=== PATIENT | male | born 1960 | race African-American/Black ===

== ENCOUNTER 2018-08-10 09:31 | Observation (INO) ==
[2018-08-10 10:18] LABS: UR AMPHETAMINES QUAL NONE DETECTED (NONE DETECT); UR BARBITUATES QUAL NONE DETECTED (NONE DETECT); UR BENZODIAZEPIN QUAL NONE DETECTED (NONE DETECT); UR CANNABINOIDS QUAL PRESUMPTIVE POSITIVE (NONE DETECT); UR COCAINE QUAL NONE DETECTED (NONE DETECT); UR METHADONE QUAL NONE DETECTED (NONE DETECT); UR METHAMPHETAMINE QUAL NONE DETECTED (NONE DETECT); UR OPIATES QUAL NONE DETECTED (NONE DETECT); UR OXYCODONE QUAL NONE DETECTED (NONE DETECT); UR PCP QUAL NONE DETECTED (NONE DETECT); UR PROPOXYPHENE QUAL NONE DETECTED (NONE DETECT); UR TCA QUAL NONE DETECTED (NONE DETECT)
[2018-08-10 10:49] LABS: BASO# 0.01 X1000 (0.0-0.2); BASO% 0.1 % (0.0-0.8); EOS# 0.01 X1000 (0.0-0.7); EOS% 0.1 % (0.0-10.0); HEMATOCRIT 38.4 % (42.0-52.0); HEMOGLOBIN 12.6 g/dL (14.0-18.0); IMM GRAN# 0.01 X1000 (0.0-0.04); IMM GRAN% 0.1 % (0.0-0.5); LYMPH# 1.28 X1000 (1.2-3.4); LYMPH% 17.1 % (20.5-51.1); MCH 29.8 PG (27-31); MCHC 32.8 g/dL (33-37); MCV 90.8 FL (81-99); MONO# 0.29 X1000 (0.11-0.59); MONO% 3.9 % (1.7-9.3); MPV 9.6 FL (7.4-10.4); NEUT# 5.88 X1000 (1.4-6.5); NEUT% 78.7 % (42.2-75.2); PLT 211 X1000 (130-400); RBC 4.23 XMIL (4.7-6.1); RDW 15.1 % (11.5-14.5); WBC 7.48 X1000 (4.8-10.8)
[2018-08-10 11:03] LABS: INR 1.02; PROTIME 13.9 Seconds (11.0-16.0)
[2018-08-10 11:04] LABS: AGAP 15; ALBUMIN 4.2 g/dL (3.5-5.0); ALKALINE PHOSPHATASE 94 U/L (32-122); BUN 13 mg/dL (8-22); CALCIUM 9.2 mg/dL (8.8-10.2); CHLORIDE 107 mmol/L (98-107); COSMO 283; CREATININE 1.2 mg/dL (0.7-1.2); ESTIMATED GFR > 60; GLUCOSE 170 mg/dL (70-104); GOT 19 U/L (10-34); GPT 11 U/L (10-44); POTASSIUM 4.5 mmol/L (3.5-5.1); PTT 25.2 Seconds (22.3-41.8); SODIUM 140 mmol/L (136-145); TCO2 18 mmol/L (25-35); TOTAL PROTEIN 7.5 g/dL (6.3-8.3)
[2018-08-10 11:08] LABS: CK PROFILE 388 U/L (24-204)
[2018-08-10 11:22] LABS: CK INDEX 0.7 (0.0-2.5); CK-MB 2.76 ng/mL (0.0-5.0)
[2018-08-10 11:23] LABS: BE -2.9 mmoll (-3.0-3.0); BLOOD TYPE ARTERIAL; HCO3-(ACT) 22.4 mmoll (20.0-26.0); METHB 1.3 % (0.0-1.5); PCO2(98.6) 33 mmHg (35-45); PO2(98.6) 60 mmHg (60-100); SAMPLE BLOOD; SAO2 93.6 % (95.0-100.0); THB 13.7 g/dL (11.5-17.4); pH(98.6) 7.41 (7.35-7.45)
[2018-08-10 11:30] LABS: ALLEN TEST YES; MODALITY ROOM AIR
[2018-08-10] MEDS ORDERED: ZOFRAN IV ONE (11:34)
[2018-08-10 11:36] LABS: O2HB 88.5 % (95.0-99.0)
[2018-08-10] MEDS ORDERED: NS 1,000 ML IV ONE ×3 (11:58→17:29)
--- NOTE | 2018-08-10 12:41 | Diag Imaging Result Doc PS360 ---
EXAM: CT HEAD/C-SPINE W/O CONTRAST INDICATION: seizure fall TECHNIQUE: This exam was performed using automated exposure control, adjustment of mA or kV according to patient size, and/or use of iterative reconstruction technique. COMPARISON: CT head dated 04/06/2018 FINDINGS: Head: There is no definite acute infarct given the limited sensitivity of CT versus MRI. There is no discrete intracranial mass, mass effect, or intracranial hemorrhage. There is essentially stable paranasal sinus mucosal disease. The calvaria is intact. C-spine: There is multilevel degenerative disc disease with multilevel endplate marginal osteophytes. This causing at least mild central canal and neuroforaminal narrowing at several levels. Otherwise, there is no discrete fracture, subluxation, or intrinsic osseous lesion. There are emphysematous changes at the lung apices. Surrounding soft tissues are essentially unremarkable, otherwise. IMPRESSION: 1.No evidence of acute intracranial pathology. 2.Multilevel degenerative changes but no evidence of fracture or other definite acute C-spine injury. Electronically signed by Geovanny Barnes 08/10/2018 12:39 PM
[2018-08-10] MEDS ORDERED: NS 1,000 ML ONE ×2 (13:16→17:18)
--- NOTE | 2018-08-10 14:20 | Diag Imaging Result Doc PS360 ---
EXAM: CHEST-PORTABLE INDICATION: syncope TECHNIQUE: One view COMPARISON: 07/04/2018 FINDINGS: There is minimal subsegmental atelectasis and/or scarring at the lung bases. The lungs are grossly clear, otherwise. There is no discrete pleural fluid collection or pneumothorax. The cardiomediastinal silhouette and central vasculature are grossly unremarkable. IMPRESSION: Minimal bibasilar subsegmental atelectasis versus scarring. No definite acute pathology, otherwise. Electronically signed by Geovanny Barnes 08/10/2018 2:18 PM
[2018-08-10] MEDS ORDERED: CATAPRES PO ONE (14:57)
--- NOTE | 2018-08-10 16:29 | PROVIDER DOCUMENTATION ---
This chart was entered by Ellie Ewing Scribe, acting as scribe for Arya Hamm MD. HPI-General Adult - General Chief Complaint: Altered Mental Status Stated Complaint: Unresponsive Time Seen by Provider: 08/10/18 09:54 Source: patient, family, EMS Allergies/Adverse Reactions: Patient Allergies Allergy/AdvReac Type Severity Reaction Status Date / Time morphine Allergy HIVES Verified 07/04/18 18:49 Penicillins Allergy HIVES Verified 07/04/18 18:49 Home Medications: Home Medication List Medication Instructions Recorded Confirmed Last Taken Type Losartan Potassium [Cozaar] 100 mg PO DAILY 05/30/17 07/04/18 07/04/18 History Metformin [Glucophage] 500 mg PO BID CC 02/07/18 07/04/18 07/04/18 History Venlafaxine HCl 2 tab PO DAILY 06/15/18 07/04/18 07/04/18 History Aspirin [Aspir-Low] 81 mg PO DAILY 07/04/18 07/04/18 07/04/18 History Tiotropium [place] Inhaler 1 puff INH RTDAILY 07/04/18 07/04/18 Unknown History [Spiriva] - History of Present Illness -Gen Adult Nature of Presenting Problems: 58 y/o male presents to ED after daughter found him unresponsive in bed just prior to arrival. Pt reports he has been falling out of bed over the past 3 days , but states he does not remember how he got there and his daughter has to tell him about it. Pt states he has hx seizures. Pt reports he has neck and back pain due to his falls. Daughter of pt states she found him in the floor again at 0330, but he refused to come to ED. Daughter reports she checked on him again before she called EMS and he was unresponsive and incontinent of urine/ stool. EMS states he was foaming at the mouth, had deep snoring respirations, and pinpoint pupils upon their arrival. EMS reports he awoke when they moved him , but was altered. Daughter states he smokes marijuana, but is not using any other substances. Pt is alert and oriented. Location of Pain/Injury: reports: neck, back Pain Radiation: reports: no radiation Quality of Pain: reports: aching Severity: reports: mild Onset/Duration: reports: just prior to arrival, 4-6 hours ago, 3 days ago, this morning Timing: reports: still present Context/Activities at Onset: reports: none Modifying Factors: improves with: nothing Associated Symptoms: reports: back/neck pain, other (unresponsive prior to arrival; falling out of bed; incontinent of stool/urine) Similar Symptoms Previously?: No Recently seen or treated by another doctor?: No Review of Systems - Adult - REVIEW OF SYSTEMS - ADULT Constitutional: reports: other (unresponsive prior to arrival). denies: chills , fever Eyes: reports: no symptoms reported Ears, Nose, Mouth & Throat: reports: no symptoms reported Cardiovascular: denies: chest pain, palpitations Respiratory: denies: cough, shortness of breath Gastrointestinal: denies: abdominal pain, diarrhea, nausea, vomiting Genitourinary: reports: incontinence (stool/urine). denies: discharge Musculoskeletal: reports: back pain, neck pain. denies: joint pain Integumentary: reports: no symptoms reported Neurological: reports: other (falling). denies: dizziness/vertigo, seizure Psychiatric: reports: no symptoms reported Endocrine: reports: no symptoms reported Hematologic/Lymphatic: reports: no symptoms reported Allergic/Immunologic: reports: no symptoms reported All Other Systems: Reviewed and Negative Past History - Adult - PAST MEDICAL HISTORY-ADULT Review of Records: reports: Old Records Reviewed, Nursing Assessment Review, Medications Reviewed Major Childhood Illnesses: reports: denies history Cardiovascular: reports: HTN, hyperlipidemia Respiratory: reports: asthma, COPD Gastrointestinal: reports: denies history, pancreatitis Obstetrical/Gynecological: reports: denies history Genitourinary: reports: denies history Musculoskeletal: reports: denies history Neurological: reports: Seizures/Epilepsy Psychiatric: reports: depression, ptsd Endocrine/Immune: reports: Diabetes Other Conditions: reports: denies history - PRIOR SURGERIES/PROCEDURES Surgical/Procedure History: reports: reviewed, not pertinent, other (left testicle removal) - IMMUNIZATION STATUS Childhood Immunizations: See Nurse Assessment Flu Vaccine: See Nurse Assessment - FAMILY HISTORY Family History: reviewed, not pertinent, CAD over 55 yo - SOCIAL HISTORY Smoking: greater than 1 pack/day Provider spent 3-5 mins advising pt. on dangers of tobacco.: Discussed manners to quit use, and f/u contacts for add'l counseling. Substance Use: marijuana Alcohol Use Frequency: never Living Situation: family Physical Exam-General - PHYSICAL EXAM-ADULT Initial Vital Signs Reviewed: Yes - CONSTITUTIONAL General Appearance: appears well, alert, no apparent distress, other (active vomiting) - EYES Eyes: pink conjunctivae, other (pinpoint pupils) - HEAD, EARS, NOSE, MOUTH & THROAT HENMT: normocephalic/atraumatic, moist mucous membranes, normal ENT inspection - NECK Neck: non-tender, full range of motion - RESPIRATORY Respiratory: chest non-tender, lungs clear, normal breath sounds - CARDIOVASCULAR Cardiovascular: normal peripheral pulses, regular rate, rhythm - GASTROINTESTINAL (ABDOMEN) Abdominal Exam: normal bowel sounds, non tender, soft - MUSCULOSKELETAL Back Exam: normal inspection, no CVA tenderness Extremity: normal range of motion, non-tender, normal gait - SKIN Integumentary: normal color, warm/dry, diaphoresis - NEUROLOGIC Neurologic: grossly normal - PSYCHIATRIC Psych/Mental Status: normal mood/affect, normal thought content, normal thought process Progress - PLAN OF CARE/RESULTS Progress/Plan/Lab Results: Vital Signs - 8 hr 08/10/18 09:38 Temperature 98.1 F Pulse Rate 90 Respiratory Rate 20 Blood Pressure 178/84 O2 Sat by Pulse Oximetry 91 L Orders Category Date Time Status Cardiac Monitoring DIRECTED Care 08/10/18 09:46 Active Finger Stick Blood Sugar (ED) DIRECTED Care 08/10/18 09:46 Active Oxygen Therapy- ED Nursing DIRECTED Care 08/10/18 09:46 Active Saline Loc NOW Care 08/10/18 09:46 Active CHEST-PORTABLE [RAD] Stat Exams 08/10/18 09:[address] HEAD W/O CONTRAST [CT] Stat Exams 08/10/18 09:48 Ordered ABG [RESP] Routine Lab 08/10/18 09:46 Ordered CBC WITH ELECTRONIC DIFF [HEME] Stat Lab 08/10/18 09:49 Ordered CK PROFILE [SP CHEM] Stat Lab 08/10/18 09:49 Ordered COMPREHENSIVE METABOLIC PANEL [CHEM] Stat Lab 08/10/18 09:49 Ordered LACTATE, PLASMA [CHEM] Stat Lab 08/10/18 09:49 Ordered PROTIME WITH INR [COAG] Stat Lab 08/10/18 09:49 Ordered PTT [COAG] Stat Lab 08/10/18 09:49 Ordered TROPONIN T Stat Lab 08/10/18 09:49 Ordered Altered Mental Status Stat Oth 08/10/18 09:46 Ordered EKG [EKG] Stat Ther 08/10/18 09:46 Ordered Laboratory Tests 08/10/18 08/10/18 08/10/18 09:50 10:40 10:40 WBC 7.48 RBC 4.23 L Hgb 12.6 L Hct 38.4 L MCV 90.8 MCH 29.8 MCHC 32.8 L RDW Std Deviation 15.1 H Plt Count 211 MPV 9.6 Immature Gran % (Auto) 0.1 Neut % (Auto) 78.7 H Lymph % (Auto) 17.1 L [place] % (Auto) 3.9 Eos % (Auto) 0.1 Baso % (Auto) 0.1 Immature Gran # (Auto) 0.01 Neut # (Auto) 5.88 Lymph # (Auto) 1.28 [place] # (Auto) 0.29 Eos # (Auto) 0.01 Baso # (Auto) 0.01 PT INR PTT (Actin FS) Specimen Type Sample Site pH pCO2 pO2 HCO3 Base Excess Oxyhemoglobin ABG O2 Sat (Calculated) ABG O2 Saturation ABG Carboxyhemoglobin ABG Methemoglobin [place]gard Test A-a O2 Difference Total Hemoglobin Lactate Blood Gas Modality FiO2 % Sodium 140 Potassium 4.5 Chloride 107 Carbon Dioxide 18 L Anion Gap 15 BUN 13 Creatinine 1.2 Estimated GFR/1.73 m2 > 60 BUN/Creatinine Ratio 11 Glucose 170 H Calculated Osmolality 283 Calcium 9.2 Total Bilirubin 0.30 AST 19 ALT 11 Alkaline Phosphatase 94 Creatine Kinase 388 H Creatine Kinase Index 0.7 CK-MB (CK-2) 2.76 Troponin T Total Protein 7.5 Albumin 4.2 Globulin 3.0 Albumin/Globulin Ratio 1.0 Plasma Lactate Urine Opiates Screen NONE DETECTED Ur Oxycodone Screen NONE DETECTED Urine Methadone Screen NONE DETECTED U Propoxyphene Qual NONE DETECTED Ur Barbituates Screen NONE DETECTED Ur Tricyclics Screen NONE DETECTED Ur Phencyclidine Scrn NONE DETECTED Ur Amphetamines Screen NONE DETECTED U Methamphetamines Scrn NONE DETECTED U Benzodiazepines Scrn NONE DETECTED Urine Cocaine Screen NONE DETECTED U Cannabinoids Screen PRESUMPTIVE POSITIVE A 08/10/18 08/10/18 08/10/18 10:40 10:40 10:40 WBC RBC Hgb Hct MCV MCH MCHC RDW Std Deviation Plt Count MPV Immature Gran % (Auto) Neut % (Auto) Lymph % (Auto) [place] % (Auto) Eos % (Auto) Baso % (Auto) Immature Gran # (Auto) Neut # (Auto) Lymph # (Auto) [place] # (Auto) Eos # (Auto) Baso # (Auto) PT 13.9 INR 1.02 PTT (Actin FS) 25.2 Specimen Type Sample Site pH pCO2 pO2 HCO3 Base Excess Oxyhemoglobin ABG O2 Sat (Calculated) ABG O2 Saturation ABG Carboxyhemoglobin ABG Methemoglobin [place] Test A-a O2 Difference Total Hemoglobin Lactate Blood Gas Modality FiO2 % Sodium Potassium Chloride Carbon Dioxide Anion Gap BUN Creatinine Estimated GFR/1.73 m2 BUN/Creatinine Ratio Glucose Calculated Osmolality Calcium Total Bilirubin AST ALT Alkaline Phosphatase Creatine Kinase Creatine Kinase Index CK-MB (CK-2) Troponin T < 0.010 Total Protein Albumin Globulin Albumin/Globulin Ratio Plasma Lactate 3.8 H Urine Opiates Screen Ur Oxycodone Screen Urine Methadone Screen U Propoxyphene Qual Ur Barbituates Screen Ur Tricyclics Screen Ur Phencyclidine Scrn Ur Amphetamines Screen U Methamphetamines Scrn U Benzodiazepines Scrn Urine Cocaine Screen U Cannabinoids Screen 08/10/18 11:00 WBC RBC Hgb Hct MCV MCH MCHC RDW Std Deviation Plt Count MPV Immature Gran % (Auto) Neut % (Auto) Lymph % (Auto) [place] % (Auto) Eos % (Auto) Baso % (Auto) Immature Gran # (Auto) Neut # (Auto) Lymph # (Auto) [place] # (Auto) Eos # (Auto) Baso # (Auto) PT INR PTT (Actin FS) Specimen Type ARTERIAL Sample Site L RADIAL pH 7.41 pCO2 33 L pO2 60 HCO3 22.4 Base Excess -2.9 Oxyhemoglobin 88.5 L* ABG O2 Sat (Calculated) 17.0 ABG O2 Saturation 93.6 L ABG Carboxyhemoglobin 4.00 H ABG Methemoglobin 1.3 [place]gard Test YES A-a O2 Difference 48.0 Total Hemoglobin 13.7 Lactate 1.70 Blood Gas Modality ROOM AIR FiO2 % 21.0 Sodium Potassium Chloride Carbon Dioxide Anion Gap BUN Creatinine Estimated GFR/1.73 m2 BUN/Creatinine Ratio Glucose Calculated Osmolality Calcium Total Bilirubin AST ALT Alkaline Phosphatase Creatine Kinase Creatine Kinase Index CK-MB (CK-2) Troponin T Total Protein Albumin Globulin Albumin/Globulin Ratio Plasma Lactate Urine Opiates Screen Ur Oxycodone Screen Urine Methadone Screen U Propoxyphene Qual Ur Barbituates Screen Ur Tricyclics Screen Ur Phencyclidine Scrn Ur Amphetamines Screen U Methamphetamines Scrn U Benzodiazepines Scrn Urine Cocaine Screen U Cannabinoids Screen Result Diagrams: 08/10/18 10:40 08/10/18 10:40 - EKG 1 Time of EKG reading by physician:: 12:44 EKG Read and Signed by:: Arya Hamm EKG Interpretation (*Must complete 3 of following elements*): Abnormal Rate: 85 Rhythm: NSR w/ sinus arrhythmia [place]: normal QRS: normal IN Interval: normal ST Wave: non-specific ST changes (consider anterolateral ischemia) - XRAY 1 XRAY Study: Chest Impression: Normal (Appears to be normal. -Dr. Hamm), See EMR Report (FINDINGS : There is minimal subsegmental atelectasis and/or scarring at the lung bases. The lungs are grossly clear, otherwise. There is no discrete pleural fluid collection or pneumothorax. The cardiomediastinal silhouette and central vasculature are grossly unremarkable. IMPRESSION: Minimal bibasilar subsegmental atelectasis versus scarring. No definite acute pathology, otherwise. Electronically signed by Geovanny Barnes 08/10/2018 2:18 PM) - CT/MRI 1 CT Study: Cervical Spine, Head Impression: Normal (FINDINGS: Head: There is no definite acute infarct given the limited sensitivity of CT versus MRI. There is no discrete intracranial mass , mass effect, or intracranial hemorrhage. There is essentially stable paranasal sinus mucosal disease. The calvaria is intact. C-spine: There is multilevel degenerative disc disease with multilevel endplate marginal osteophytes. This causing at least mild central canal and neuroforaminal narrowing at several levels. Otherwise, there is no discrete fracture, subluxation, or intrinsic osseous lesion. There are emphysematous changes at the lung apices. Surrounding soft tissues are essentially unremarkable, otherwise. IMPRESSION: 1.No evidence of acute intracranial pathology. 2.Multilevel degenerative changes but no evidence of fracture or other definite acute C-spine injury. Electronically signed by Geovanny Barnes 08/10/2018 12:39 PM) , See EMR Report - CONSULTS/PCP/HOSPITALIST Notification #1 *Consult/PCP/Hospitalist*: Dr. Noel Time Discussed: 15:00 Reason/Comments: HTN Consult Disposition: Admit Departure - Departure Date of Disposition Decision: 08/10/18 Time of Disposition Decision: 15:00 DIAGNOSIS: Tobacco abuse disorder, Drug abuse, Seizure disorder, Noncompliance Hypertension Qualifiers: Hypertension type: unspecified Qualified Code(s): I10 - Essential (primary) hypertension Disposition: ADMITTED INPATIENT 09 Certified Medical Emergency: Emergent Condition: Stable Additional Freetext Instructions: ED Follow Up Instructions: You have been treated by a care provider in the Emergency Department. These instructions are being provided to you so you can have an understanding of how to care for yourself upon discharge. Upon discharge from the Emergency Department, you are responsible for making arrangements for follow-up care by a physician of your choice. Take all prescribed medications as directed. Return to the Emergency Department immediately for any new or worsening symptoms. You may call the Physician Referral phone number at [phone] to obtain a list of Physicians who are taking new patients. Referrals and Follow-Ups: None,PCP [Primary Care Provider] - Discharge Education: Cannabis Use Disorder, Substance Use Disorder, What You Need to Know About Marijuana Use, Hypertension, [id number], Seizure, Adult - Critical Care Note This patient required my direct & personal management of CC.: No Attestation - Physician/ ABBIE Attestation Patient care was provided by Advanced Practice Provider:: No The physician spent face to face time with patient:: Yes Advanced Practice Provider documentation review:: Supervising physician onsite and consulted in the evaluation and care of this patient. The physician did have a face to face encounter with the patient. This chart was documented by the indicated scribe, (Ellie Ewing Scribe) and accurately reflects the services I performed and decisions made by me, Arya Hamm MD, as attested by the provider's signature.
--- NOTE | 2018-08-10 18:34 | EKG Report ---
Test Performed on : 08/10/2018 12:44:23 PM Test Reason : ams/syncope Blood Pressure : / mmHG Vent. Rate : 085 BPM Atrial Rate : 085 BPM P-R Int : 118 ms QRS Dur : 080 ms QT Int : 380 ms P-R-T Axes : 075 004 -59 degrees QTc Int : 452 ms Normal sinus rhythm. with sinus arrhythmia. T wave abnormality, consider anterolateral ischemia Abnormal ECG When compared with ECG of 05-JUL-2018 10:59, Nonspecific T wave abnormality has replaced inverted T waves in Inferior leads Unconfirmed Result
[2018-08-10] MEDS ORDERED: KEPPRA 500 MG in NS 100 ML IV SCH (22:19)
[2018-08-10] MEDS ORDERED: ATIVAN IV PRN (22:19)
[2018-08-10] MEDS ORDERED: APRESOLINE IV PRN (22:19)
[2018-08-10] MEDS: COZAAR PO SCH (22:46)
[2018-08-10] MEDS: NS 1,000 ML IV SCH (22:46)
--- NOTE | 2018-08-11 00:08 | HISTORY AND PHYSICAL ---
ADDENDUM: This patient was seen by me face to face, and I fully agree with the assessment and plan of my nurse practitioner, Iza Ricketts. This is a 58-year-old gentleman who was brought in to the emergency room with some altered mental status, and was positive for THC in his urine. He also has a history of seizure disorder, and has been having some twitching. He has been out of his Keppra, and therefore we are going to restart his Keppra at 500 mg IV q.12 hours. He has used marijuana, and we suspect that it was laced with Spice, which has also happened to several other patients at the emergency room since yesterday. We are going to give him IV fluids and give him medications to control his elevated blood pressure as well. Further recommendations will be given as per hospital course. cc: Reinier Noel MD
[2018-08-11 06:31] LABS: BASO# 0.02 X1000 (0.0-0.2); BASO% 0.2 % (0.0-0.8); EOS# 0.02 X1000 (0.0-0.7); EOS% 0.2 % (0.0-10.0); HEMATOCRIT 33.7 % (42.0-52.0); HEMOGLOBIN 10.8 g/dL (14.0-18.0); IMM GRAN# 0.04 X1000 (0.0-0.04); IMM GRAN% 0.5 % (0.0-0.5); LYMPH# 2.66 X1000 (1.2-3.4); LYMPH% 30.8 % (20.5-51.1); MCV 90.3 FL (81-99); MONO# 0.51 X1000 (0.11-0.59); MONO% 5.9 % (1.7-9.3); MPV 9.7 FL (7.4-10.4); NEUT# 5.38 X1000 (1.4-6.5); NEUT% 62.4 % (42.2-75.2); PLT 202 X1000 (130-400); RBC 3.73 XMIL (4.7-6.1); RDW 15.2 % (11.5-14.5); WBC 8.63 X1000 (4.8-10.8)
[2018-08-11 06:50] LABS: AGAP 13; BUN 11 mg/dL (8-22); CALCIUM 8.5 mg/dL (8.8-10.2); CHLORIDE 107 mmol/L (98-107); CK PROFILE 508 U/L (24-204); COSMO 282; CREATININE 1.2 mg/dL (0.7-1.2); ESTIMATED GFR > 60; GLUCOSE 159 mg/dL (70-104); POTASSIUM 3.3 mmol/L (3.5-5.1); SODIUM 140 mmol/L (136-145); TCO2 20 mmol/L (25-35)
[2018-08-11 07:26] LABS: CK INDEX 0.5 (0.0-2.5); CK-MB 2.57 ng/mL (0.0-5.0)
[2018-08-11] MEDS ORDERED: KEPPRA 500 MG/NS 500 MG/100 ML IVPB IV SCH (10:00)
[2018-08-11] MEDS: COZAAR PO SCH (10:10)
--- NOTE | 2018-08-11 10:21 | HISTORY AND PHYSICAL ---
PRIMARY CARE PHYSICIAN: IRINA Carrillo CHIEF COMPLAINT: Altered mental status. HISTORY OF PRESENTING ILLNESS: This is a 58-year-old -Stateless male who presents to [facility] ER via EMS after the daughter found him responsive in bed, he had been falling out of bed over the past 3 days states he does not remember how he got here and his daughter has to tell him. She states that she found him in the floor at 3:30 this morning and that he had incontinence of urine and stool. He refused to come to the emergency department. She went to check on him again around 9:30 and he was found to be unresponsive again and incontinent of urine and stool. EMS stated that he was foaming at the mouth had deep snoring respirations and pinpoint pupils on their arrival. He woke up when they moved him but was altered. The daughter states that he does smoke marijuana daily but does not use any other substance. At this time he is alert and oriented but lethargic, difficult to obtain a history from him daughter is at bedside. His workup did show O2 saturation on arrival of 91%. Labs were fairly unremarkable. He did have an elevated plasma lactate level 3.8 repeat was at 2.8, his urine drug screen was presumptive positive for cannabis and felt that this was most likely laced with maybe spice unclear but he will be admitted for evaluation and treatment. PAST MEDICAL HISTORY: Of hypertension, PTSD, seizures, COPD and diabetes type 2. PAST SURGICAL HISTORY: None. FAMILY HISTORY: Father with coronary artery disease. SOCIAL HISTORY: He currently lives with his daughter, is a 45 pack per year history of smoking. Denies any alcohol use, uses marijuana daily. ALLERGIES: Morphine and penicillin. HOME MEDICATIONS: A current list will need to be obtained then we will review and restart as appropriate I will place nursing order to update and confirm home medications. LABORATORY DATA: Showed a white blood cell count of 7.48, hemoglobin 12.6, hematocrit 38.4, platelets 211,000, PT/INR 13.9 and 1.02. ABG with a PCO2 33, PO2 60, bicarb 22.4. Carboxyhemoglobin 88.5. Sodium 140, potassium 4.5, chloride 107, CO2 18, BUN 13, creatinine 1.2, glucose 170, creatine kinase of 388, CK-MB of 2.76, troponin less than 0.010, plasma lactate was 3.8 on arrival repeat was down to 2.8. Urine drug screen was positive for cannabinoids. Chest x- ray showed minimal bibasilar subsegmental atelectasis versus scarring but no definite acute pathology otherwise. CT of the head showed no acute intracranial pathology. CT of the cervical spine showed multilevel degenerative changes but no fracture or other definite acute C-spine injury. REVIEW OF SYSTEMS: Unable to obtain from patient. PHYSICAL EXAMINATION: On arrival temperature of 98.1 degrees, pulse 90, respiration 20, blood pressure 178/84 saturating 91 percent on room air . GENERAL: This is a 58-year-old male who is lying in the bed unable to answer questions, daughter is at bedside to answer questions and obtained information from medical record in the ER also. HEENT: Normocephalic, atraumatic. Normal ENT inspection. Oropharynx and nares are clear. Pupils are equal, round, reactive to light and accommodation. Extraocular movements are intact. NECK: Normal inspection, normal range of motion. LUNGS: Clear to auscultation bilaterally with equal lung expansion, chest wall movement. HEART: With regular rate and rhythm. No murmurs, rubs, or gallops. ABDOMEN: Soft, nontender nondistended bowel sounds times four quadrants. MUSCULOSKELETAL: Unable to assess due to altered mental status . NEUROLOGIC: Unable to assess complete neuro exam but appears to be within normal limits at this time . ASSESSMENT: 1. Possible spice overdose unintentional unknown. 2. Seizure. 3. Diabetes type 2. 4. Hypoxia. 5. Marijuana abuse. PLAN: He will be admitted to the medical unit at [facility], we are obtaining a Keppra level, place on telemetry, O2 per protocol, neuro checks q.2 hours. Normal saline at 100 mL an hour. Will place on hydralazine 10 mg IV q.4 hours p.r.n. for a systolic greater than 190, diastolic greater than 100, will have nursing to update and confirm all medication, recheck CBC, BMP in the a.m. and a cardiac profile in the a.m. Further orders after being seen by attending. Dictated by IRINA Mijares for Reinier Noel MD cc: IRINA Carrillo CRNP Adnan A. Seljuki, MD
[2018-08-11] MEDS: NS 1,000 ML IV SCH (10:30)
[2018-08-11 12:36] VITALS: BP 158/74
--- NOTE | 2018-08-11 13:20 | DISCHARGE SUMMARY ---
ADMISSION DATE: 08/10/2018 DISCHARGE DATE: 08/11/2018 DISCHARGE DIAGNOSES: 1. Altered mental status secondary to an unintentional spice overdose. 2. History of seizure disorder that has been stable. 3. History of type 2 diabetes mellitus and hypertension, both of which have remained stable. HOSPITAL COURSE: This is a 58-year-old gentleman who was admitted through the emergency room after he was brought into the hospital with altered mental status. He had admitted that he was using marijuana that was suspected to be laced with spice. He was admitted to the hospital and was given IV fluids. Over the course of the night, the patient's condition improved and he is much better this morning. He is alert and oriented and has completely recovered because of which we are going to discharge him home today. DISCHARGE MEDICATIONS: 1. Keppra 500 mg orally twice daily. 2. Aspirin 81 mg orally once daily. 3. Losartan 100 mg orally once daily. 4. Metformin 500 mg orally twice daily. 5. Spiriva inhaler 1 puff once daily. 6. Venlafaxine 150 mg a day. FOLLOW-UP: He will follow with his PCP in approximately 1 week. CONDITION: Stable. DISPOSITION: Home. cc: Reinier Noel MD
== END 2018-08-11 13:42 | disposition home or self-care (01) ==
LOC: P.EDIPHOLD 09:31 → P.ED 09:31 → P.MEDSURG 20:58
PROVIDERS: ATTEND Internal Medicine
CPT/HCPCS: 70450; 71010; 71045; 72125; 80048; 80053; 80104; 80177; 80299; 80301; 80305; 82491; 82550; 82553; 82805; 82948; 83605; 84484; 85025; 85610; 85730; 93005; 94760; 96361; 96374; 99285; A9270; G0431; G0434; G0477; J1953; J2405; J7030; XXXXX

== ENCOUNTER 2018-11-22 10:26 | Inpatient (IN) ==
[2018-11-21 15:24] LABS: BASO# 0.02 X1000 (0.0-0.2); BASO% 0.3 % (0.0-0.8); EOS# 0.22 X1000 (0.0-0.7); EOS% 3.2 % (0.0-10.0); HEMATOCRIT 40.4 % (42.0-52.0); IMM GRAN# 0.02 X1000 (0.0-0.04); IMM GRAN% 0.3 % (0.0-0.5); LYMPH# 3.29 X1000 (1.2-3.4); LYMPH% 47.5 % (20.5-51.1); MCH 29.9 PG (27-31); MCHC 32.2 g/dL (33-37); MCV 92.9 FL (81-99); MONO# 0.37 X1000 (0.11-0.59); MONO% 5.3 % (1.7-9.3); MPV 10.1 FL (7.4-10.4); NEUT# 3.01 X1000 (1.4-6.5); NEUT% 43.4 % (42.2-75.2); PLT 220 X1000 (130-400); RBC 4.35 XMIL (4.7-6.1); RDW 16.6 % (11.5-14.5); WBC 6.93 X1000 (4.8-10.8)
[2018-11-21 15:53] LABS: AGAP 12; BUN 13 mg/dL (8-22); CALCIUM 9.1 mg/dL (8.8-10.2); CHLORIDE 103 mmol/L (98-107); COSMO 279; CREATININE 1.3 mg/dL (0.7-1.2); ESTIMATED GFR > 60; GLUCOSE 89 mg/dL (70-104); POTASSIUM 4.1 mmol/L (3.5-5.1); SODIUM 140 mmol/L (136-145); TCO2 25 mmol/L (25-35)
[2018-11-22] MEDS ORDERED: VANCOMYCIN 1 GM/NS 1 GM/250 ML IVPB ONE (10:57)
[2018-11-22] MEDS ORDERED: LR 1,000 ML ONE (10:57)
[2018-11-22] MEDS ORDERED: SENSORCAINE-MPF 0.5%/EPI 1:200,000 ONE (11:13)
[2018-11-22] MEDS ORDERED: REGLAN ONE (11:18)
[2018-11-22] MEDS ORDERED: PEPCID ONE (11:18)
[2018-11-22] MEDS ORDERED: VALIUM ONE (11:19)
[2018-11-22] MEDS ORDERED: DIPRIVAN 1% ONE (11:21)
[2018-11-22] MEDS ORDERED: FENTANYL ONE (11:22)
[2018-11-22] MEDS ORDERED: SODIUM CHLORIDE 0.9% 10 ML ONE (11:23)
[2018-11-22] MEDS ORDERED: NORCURON ONE (11:23)
[2018-11-22] MEDS ORDERED: ZOFRAN ONE (11:23)
[2018-11-22] MEDS ORDERED: QUELICIN (DOSE) ONE (11:23)
[2018-11-22] MEDS ORDERED: VERSED ONE (11:27)
[2018-11-22] MEDS ORDERED: DILAUDID ONE (12:12)
[2018-11-22] MEDS ORDERED: BRIDION ONE (12:51)
[2018-11-22] MEDS ORDERED: ROBINUL ONE (13:18)
[2018-11-22] MEDS ORDERED: LABETALOL (DOSE) ONE (14:03)
[2018-11-22] MEDS: NARCAN ONE ×2 (14:10→14:58)
--- NOTE | 2018-11-22 15:50 | Diag Imaging Result Doc PS360 ---
EXAM: CHEST-1 VIEW HISTORY: resp distress,somnalence TECHNIQUE: Chest single view COMPARISON: 10/21/2018 FINDINGS: Poor inspiratory effort. Mild pulmonary edema has developed since the prior exam. No consolidation. No pleural effusions identified. No cardiomegaly. IMPRESSION: Mild pulmonary edema. Electronically signed by Leo Castellanos 11/22/2018 3:48 PM
[2018-11-22 15:52] LABS: ALLEN TEST YES; BLOOD TYPE ARTERIAL; METHB 1.3 % (0.0-1.5); O2(CT) 15.4 mL/dL (15.0-23.0); PCO2(98.6) 40 mmHg (35-45); PO2(98.6) 52 mmHg (60-100); SAMPLE BLOOD; SAO2 88.5 % (95.0-100.0); THB 13.2 g/dL (11.5-17.4); pH(98.6) 7.37 (7.35-7.45)
[2018-11-22 15:55] LABS: MODALITY CANNULA; O2HB 83.1 % (95.0-99.0)
[2018-11-22] MEDS ORDERED: ZOFRAN IV PRN ×2 (16:02→16:35)
[2018-11-22] MEDS ORDERED: LASIX IV ONE (16:05)
[2018-11-22] MEDS ORDERED: DUONEB (A & A) INH PRN (16:05)
[2018-11-22] MEDS ORDERED: TYLENOL PR PRN (16:31)
[2018-11-22] MEDS ORDERED: VENTOLIN HFA INH PRN (17:23)
[2018-11-22] MEDS: AZACTAM 1 GM in NS 50 ML IV SCH (17:32)
[2018-11-22] MEDS ORDERED: NS 500 ML ONE (17:37)
[2018-11-22 17:48] LABS: BASO# 0.01 X1000 (0.0-0.2); BASO% 0.1 % (0.0-0.8); HEMATOCRIT 40.5 % (42.0-52.0); HEMOGLOBIN 12.9 g/dL (14.0-18.0); IMM GRAN# 0.02 X1000 (0.0-0.04); IMM GRAN% 0.2 % (0.0-0.5); LYMPH# 0.92 X1000 (1.2-3.4); LYMPH% 8.9 % (20.5-51.1); MCH 29.9 PG (27-31); MCHC 31.9 g/dL (33-37); MCV 93.8 FL (81-99); MPV 9.4 FL (7.4-10.4); NEUT# 9.24 X1000 (1.4-6.5); NEUT% 89.8 % (42.2-75.2); PLT 217 X1000 (130-400); RBC 4.32 XMIL (4.7-6.1); RDW 16.7 % (11.5-14.5); WBC 10.29 X1000 (4.8-10.8)
[2018-11-22 18:12] LABS: AGAP 12; ALB/GLOB RATIO 1.1; ALBUMIN 3.9 g/dL (3.5-5.0); ALKALINE PHOSPHATASE 88 U/L (32-122); BUN 16 mg/dL (8-22); CALCIUM 8.9 mg/dL (8.8-10.2); CHLORIDE 106 mmol/L (98-107); COSMO 284; CREATININE 1.4 mg/dL (0.7-1.2); ESTIMATED GFR > 60; GLUCOSE 155 mg/dL (70-104); GOT 15 U/L (10-34); GPT 12 U/L (10-44); POTASSIUM 4.4 mmol/L (3.5-5.1); SODIUM 140 mmol/L (136-145); TCO2 22 mmol/L (25-35); TOTAL BILIRUBIN 0.34 mg/dL (0.20-1.00); TOTAL PROTEIN 7.3 g/dL (6.3-8.3)
[2018-11-22 18:13] LABS: BASO 1 % (0-1); LYMPHS 10 % (21-51); MONO 1 % (1-9); SEGS 88 % (42-75)
--- NOTE | 2018-11-22 18:47 | OPERATIVE NOTE ---
PROCEDURE DATE: 11/22/2018 PREOPERATIVE DIAGNOSIS: Bilateral inguinal hernias. POSTOPERATIVE DIAGNOSIS: Bilateral incarcerated indirect inguinal hernias. PROCEDURE: Laparoscopic robot-assisted repair of bilateral incarcerated indirect inguinal hernias with mesh (Bard 3DMax mesh). SURGEON: Jose Ya MD MAINTENANCE MANAGER: None. ANESTHESIA: General tracheal. INTRAOPERATIVE FINDINGS: As dictated. COMPLICATIONS: None at the time of this dictation. ESTIMATED BLOOD LOSS: 10 mL. SPECIMENS REMOVED: None. BRIEF HISTORY: A 58-year-old gentleman who came to my office with inguinal hernias, and he wanted to have them repaired. We discussed and documented the risks, benefits, and alternatives. The risks include, but not limited to, bleeding, infection, risk of recurrence, risk of mesh complication, risk of testicular loss, risk of chronic pain, risk of injuring other organs. Risk of anesthesia discussed with the patient. He voiced understanding and wished to proceed with the procedure. DESCRIPTION OF PROCEDURE: After informed consent was obtained, the patient was brought to the operative theatre, transferred to the operating table, and placed in supine position. General endotracheal anesthesia was then performed without complication. A formal time-out was then performed, confirming patient, date, and procedure. All were in agreement. At that time, attention was given to the abdomen. A supraumbilical incision was made, through which using Optiview technique, we inserted a 12 mm trocar, connected it to insufflation, and pneumoperitoneum was achieved. Under direct visualization, we placed 2 more trocars, both 8 mm, both lateral to this initial trocar. We then docked the robot. I turned my attention to the robot console. We first turned our attention to the right side. We made a preperitoneal plane on the right side all the way down to Doc's ligament and laterally to the anterior superior iliac spine. We reduced the indirect inguinal hernia and reduced the hernia itself. We then placed a piece of mesh in the area, secured it in place in the standard fashion, and then closed the preperitoneal plane. We did a similar approach to the left side, making a preperitoneal plane going down the Doc's ligament and laterally to the anterior superior iliac spine, reduced the contents of the indirect hernia sac, and then placed the mesh and secured it in place in the standard fashion. The patient had his preperitoneal plane closed also. These were both done with a running V-Loc suture. We de- docked the robot, closed the infraumbilical incision with a 0 Vicryl on a Florentino-Jazz device, we removed all trocars, disconnected the insufflation, and pneumoperitoneum was released. All skin incisions were closed with 4-0 Monocryl. The patient tolerated the procedure well and was transferred back to the recovery room in stable condition. cc: Jose Ya MD
[2018-11-22] MEDS: DUONEB (A & A) INH SCH ×2 (19:15→23:17)
--- NOTE | 2018-11-22 19:15 | Diag Imaging Result Doc PS360 ---
EXAM: LUNG SCAN / VQ HISTORY: hypoxemia s/p surgery TECHNIQUE: Nuclear medicine ventilation/perfusion lung scan COMPARISON: Recent plain film FINDINGS: 41 mCi DTPA used for the ventilation images. 5.8 mCi MAA given intravenously for the perfusion images. No wedge shaped perfusion defects. No ventilation perfusion mismatches. IMPRESSION: No pulmonary embolus. Electronically signed by Leo Castellanos 11/22/2018 7:13 PM
--- NOTE | 2018-11-22 19:49 | HISTORY AND PHYSICAL ---
CHIEF COMPLAINT: Hypoxemia. HISTORY OF PRESENT ILLNESS: This is a 58-year-old gentleman with a prior history of hypertension, diabetes mellitus, COPD and seizures. He underwent bilateral inguinal hernia repair today and on arrival to recovery room he was very sedated having O2 saturations in the low to mid 80s. He was given Narcan x2 doses with a slight change in mentation. Nurses in recovery room stated that the patient came from surgery suite to recovery room with copious secretions. He had oral airway in place. A nasal trumpet insertion was attempted. They were unable to place as the patient had caused his nose to bleed. At the time of my exam the patient is restless. He will open his eyes to his name being called. He will answer questions or attempt to answer questions although sometimes speech is garbled. Once with increased stimulation he will open his eyes, look at you and answer questions. At 1 time and it was attempted to place a nasal trumpet but they were unable secondary to his nose bleeding. PAST MEDICAL HISTORY: Diabetes mellitus, hypertension, COPD, PTSD. PAST SURGICAL HISTORY: Bilateral inguinal hernia repair. SOCIAL HISTORY: He smokes marijuana regularly. He smokes a pack to pack and half a day of cigarettes. He denies any alcohol abuse. FAMILY HISTORY: Dad is positive for coronary artery disease. ALLERGIES: Penicillin and morphine which make him have hives and swell all over. CURRENT MEDICATIONS: A list will be obtained by the nursing staff. Once verified will review and restart as appropriate. REVIEW OF SYSTEMS: Unable to discuss with the patient as he is so sedated. PHYSICAL EXAMINATION: GENERAL: This is a 58-year-old gentleman who is lying on the stretcher in the recovery room in no distress. VITAL SIGNS: Blood pressure is 163/78 with a heart rate of 78, respirations are 16 to 18, temperature is 98.5 degrees oral, O2 saturations range from 88 to 92% on 4 L nasal cannula. HEENT: Pupils are equal, round, react to light. EOMs are intact. Sclerae are anicteric. Head is normocephalic, atraumatic. Mucous membranes are dry. NECK: Supple with trachea midline. CARDIOVASCULAR: Regular rate and rhythm. S1 and S2 appreciated. He has no lower extremity edema. Peripheral pulses are palpable x4 extremities. PULMONARY: Breath sounds are diminished on the right. On the left he does have rhonchi and crackles in the base that do not clear to cough. He has rhonchi in the upper left lung that does somewhat clear to cough. GASTROINTESTINAL: Soft, nontender, nondistended with bowel sounds in all 4 quadrants. SKIN: Warm and dry with bilateral groin incisions intact and clear with no drainage. NEUROLOGIC: He is sedated, he moves extremities at random, he withdraws from pain. He will wake and answer questions with much stimulus then he dozes back off . Chest x-ray reveals mild pulmonary edema. No consolidation, no pleural effusions. ASSESSMENT AND PLAN: 1. Pulmonary edema. Will give Lasix 40 x1 and monitor his I and O. 2. Acute hypoxic respiratory failure. Will get ABGs, he will be admitted to CICU for close monitoring. Will continue with oxygen supplementation. 3. Recent bilateral inguinal hernia repair with mesh. Will monitor incisions. 4. Hypertension. 5. History of congestive heart failure, daily weights, keep a strict I and O. Continue home medications. 6. History of chronic obstructive pulmonary disease and bronchitis. Will do DuoNeb q.4 hours and q.2 hours p.r.n. Will do incentive spirometer and will identify his medications and continue. 7. Gastroesophageal reflux disease. PPI. 8. Quw-rdjqgro-qwaaxxmeh diabetes. Will hold any oral antidiabetics. He will be placed on pattern blood glucose with sliding scale insulin. 9. Seizure disorder. Will monitor for seizures. 10. Will obtain a CBC, CMP and blood gases stat. Will consult Dr. Merlos. Will identify his home medications and continue as appropriate. 11. Possible aspiration. Will attempt to get a sputum specimen and will cover for aspiration pneumonia with Azactam 1 g q.8. Further treatments pending hospital course. Dictated by IRINA Chisholm for Shania Romeo MD cc: IRINA Chisholm MD I performed a face to face encounter on the patient. I reviewed all labs and imaging on the patient. I agree with the H&P as dictated. [facility]
[2018-11-22 19:52] LABS: CK INDEX 0.9 (0.0-2.5); CK-MB 1.99 ng/mL (0.0-5.0)
[2018-11-22] MEDS: COZAAR PO SCH (20:42)
[2018-11-22] MEDS: EFFEXOR PO SCH (20:43)
[2018-11-22] MEDS: KEPPRA PO SCH (20:43)
[2018-11-22] MEDS: NORCO-5 PO PRN (20:43)
[2018-11-22] MEDS: HUMALOG SUBQ SCH (20:44)
[2018-11-23] MEDS: NORCO-5 PO PRN ×3 (02:07→13:24)
[2018-11-23] MEDS: AZACTAM 1 GM in NS 50 ML IV SCH ×3 (02:07→16:44)
[2018-11-23] MEDS: DUONEB (A & A) INH SCH ×6 (03:27→23:32)
[2018-11-23 05:05] LABS: URINE SOURCE CLEAN CATCH
[2018-11-23 05:08] LABS: BILIRUBIN URINE NEGATIVE (NEGATIVE); BLOOD URINE SMALL (NEGATIVE); COLOR YELLOW; GLUCOSE URINE 200 mg/dL (NEGATIVE); KETONE URINE TRACE mg/dL (NEGATIVE); LEUKOCYTES URINE NEGATIVE (NEGATIVE); NITRITE URINE NEGATIVE (NEGATIVE); PH URINE 5.5; PROTEIN URINE TRACE mg/dL (NEGATIVE); SP GRAVITY URINE 1.021; TURBIDITY URINE CLEAR (CLEAR); UROBILINOGEN URINE NORMAL (NORMAL)
[2018-11-23 05:09] LABS: UR EPITHELIAL CELLS <10 /HPF (<10); URINE BACTERIA NEGATIVE /HPF; URINE RBC <10 /HPF (<10); URINE WBC <10 /HPF (<10)
[2018-11-23 05:26] LABS: ALLEN TEST YES; BE -2.4 mmoll (-3.0-3.0); BLOOD TYPE ARTERIAL; METHB 1.2 % (0.0-1.5); O2(CT) 17.5 mL/dL (15.0-23.0); O2HB 95.5 % (95.0-99.0); PCO2(98.6) 34 mmHg (35-45); PO2(98.6) 116 mmHg (60-100); SAMPLE BLOOD; SAO2 99.5 % (95.0-100.0); THB 12.9 g/dL (11.5-17.4); pH(98.6) 7.41 (7.35-7.45)
[2018-11-23 05:28] LABS: MODALITY CANNULA
[2018-11-23 06:17] LABS: HEMATOCRIT 39.4 % (42.0-52.0); HEMOGLOBIN 12.7 g/dL (14.0-18.0); IMM GRAN# 0.02 X1000 (0.0-0.04); IMM GRAN% 0.2 % (0.0-0.5); LYMPH# 1.33 X1000 (1.2-3.4); LYMPH% 11.3 % (20.5-51.1); MCHC 32.2 g/dL (33-37); MCV 92.9 FL (81-99); MONO# 0.34 X1000 (0.11-0.59); MONO% 2.9 % (1.7-9.3); MPV 9.8 FL (7.4-10.4); NEUT# 10.11 X1000 (1.4-6.5); NEUT% 85.6 % (42.2-75.2); PLT 212 X1000 (130-400); RBC 4.24 XMIL (4.7-6.1); RDW 16.4 % (11.5-14.5)
[2018-11-23 06:33] LABS: AGAP 14; ALB/GLOB RATIO 1.2; ALBUMIN 3.8 g/dL (3.5-5.0); ALKALINE PHOSPHATASE 86 U/L (32-122); BUN 17 mg/dL (8-22); CALCIUM 8.7 mg/dL (8.8-10.2); CHLORIDE 104 mmol/L (98-107); COSMO 288; CREATININE 1.4 mg/dL (0.7-1.2); ESTIMATED GFR > 60; GLUCOSE 255 mg/dL (70-104); GOT 14 U/L (10-34); GPT 14 U/L (10-44); POTASSIUM 4.5 mmol/L (3.5-5.1); SODIUM 139 mmol/L (136-145); TCO2 21 mmol/L (25-35); TOTAL BILIRUBIN 0.21 mg/dL (0.20-1.00)
[2018-11-23] MEDS: PROTONIX IV SCH (06:40)
[2018-11-23] MEDS: SODIUM CHLORIDE 0.9% INJ SCH (06:41)
[2018-11-23] MEDS: HUMALOG SUBQ SCH ×4 (06:41→21:05)
--- NOTE | 2018-11-23 06:41 | Diag Imaging Result Doc PS360 ---
EXAM: CT THORAX W/O CONTRAST HISTORY: pneumonia/hypoxemia TECHNIQUE: CT chest without contrast COMPARISON: None. FINDINGS: No pleural effusions. Heart is borderline mildly prominent. No thoracic aortic aneurysm. The esophagus contains a small amount of debris. No enlarged mediastinal nodes. Moderate emphysematous changes. There are several tiny nodules in the right upper lobe addition to a 6 mm noncalcified nodule. This atelectasis versus small infiltrates of the lung bases. No consolidation. No bronchiectasis. Mild pulmonary edema. Limited images through the upper abdomen reveal ossifications in the uncinate process of pancreas which may indicate chronic pancreatitis. IMPRESSION: 1.Mild pulmonary edema and borderline mild cardiomegaly 2.And emphysema 3.Basilar atelectasis versus small infiltrates 4.Small noncalcified nodule right upper lobe with several adjacent tiny nodular densities. This is likely postinfectious. 5.Gastroesophageal reflux 6.A preliminary report was given at 10:51 PM This exam was performed using automated exposure control, adjustment of mA or kV according to patient size, and/or use of iterative reconstruction technique. Electronically signed by Leo Castellanos 11/23/2018 6:39 AM
[2018-11-23] MEDS: SPIRIVA INH SCH (07:29)
[2018-11-23] MEDS ORDERED: GLUCOPHAGE PO SCH (08:00)
[2018-11-23] MEDS ORDERED: XANAX PO PRN (08:32)
[2018-11-23] MEDS ORDERED: COZAAR PO SCH (09:00)
[2018-11-23] MEDS ORDERED: EFFEXOR PO SCH (09:00)
[2018-11-23] MEDS: NICODERM PATCH TD SCH (09:24)
[2018-11-23] MEDS: EFFEXOR PO SCH (09:24)
[2018-11-23] MEDS: KEPPRA PO SCH ×2 (09:25→21:04)
[2018-11-23] MEDS: COREG PO SCH ×2 (09:25→21:04)
[2018-11-23] MEDS: COZAAR PO SCH (09:25)
[2018-11-23] MEDS: ASPIRIN EC PO SCH (09:25)
[2018-11-23] MEDS: VITAMIN D PO SCH (09:25)
--- NOTE | 2018-11-23 12:43 | PROGRESS NOTE ---
DATE: 11/23/2018 SUBJECTIVE: The patient is resting comfortably in bed. He states that he would like a solid diet. He states that his shortness of breath has improved. OBJECTIVE: Vital Signs: Temperature 97.7 degrees, blood pressure 92/67, heart rate 113, respirations 18, O2 saturations 97% on 2 L nasal cannula. Intake 2.2 L; output 1.4 L. General: This is an elderly male lying in bed in no acute distress. Heart: S1, S2 normal. Regular rate and rhythm. Lungs: Coarse breath sounds bilaterally. No rhonchi. Abdomen: Positive bowel sounds. Soft, nontender, nondistended. Extremities: No edema, no cyanosis. Neurologic: The patient is alert and oriented x3. LABS: White blood cell count 11, hemoglobin 12, hematocrit 39 platelets 212. Sodium 139, potassium 4.5, chloride 104, CO2 21. BUN 17, creatinine 1.4, glucose 250. X-RAYS: CT of the chest showed mild pulmonary edema and borderline mild cardiomegaly. Emphysema. Small infiltrates. Basilar atelectasis. Several tiny nodular densities. ASSESSMENT AND PLAN: 1. Postoperative hypoxemia with aspiration. The ventilation perfusion scan is negative. The patient's CT does show some possible postinfectious pulmonary nodules and atelectasis. There was concern that the patient may have aspirated following the procedure. We will continue with bronchodilator therapy, supplemental oxygen and antibiotic therapy. We will consult with the industrial accountant. 2. Pulmonary nodules. We will await recommendations from the industrial accountant. 3. Diabetes mellitus type 2. Continue on sliding scale insulin for now. 4. Status post laparoscopic repair of bilateral incarcerated inguinal hernias. Management as per the general surgeon. 5. Hypertension. Will continue on the patient's current antihypertensive regimen. 6. Anxiety disorder with posttraumatic stress disorder. We will start the patient on Xanax as needed. 7. Seizure disorder. Continue on Keppra. 8. Emphysema. Aware. The patient has been counseled about smoking cessation. 9. Gastroesophageal reflux disease. Continue on Protonix. 10. Deep vein thrombosis prophylaxis. The patient is ambulatory. Continue with sequential compression devices. cc: Shania Romeo MD [facility]
[2018-11-23] MEDS ORDERED: LOVENOX SUBQ SCH (13:00)
--- NOTE | 2018-11-23 13:46 | GENERAL SURGERY PROGRESS NOTE ---
DATE: 11/23/2018 SUBJECTIVE: The patient says he has a little abdominal soreness but nothing severe. He has been able to ambulate and void on his own. He is tolerating a diet without nausea or vomiting. He does complain of some shortness of breath, which is a little worse than his normal at home. He was admitted overnight for postoperative pulmonary edema and possible aspiration pneumonia. OBJECTIVE: Vitals: He is afebrile, pulse 113, respirations 18, blood pressure 192/67, O2 saturation 97%. Urine output 1300 mL. General: He is awake and alert, in no acute distress. CV: Regular rate and rhythm. Respiratory: Bilateral breath sounds. No wheeze or rales appreciated. No increased work of breathing. Gastrointestinal: Soft, appropriately tender. Incision is clean, dry, intact. LABORATORY: A pH of 7.4, pCO2 34, pAO2 116, bicarb 23, base deficit -2.4. CBC and complete metabolic profile reviewed and unremarkable. IMAGING: A chest CT yesterday afternoon revealed mild pulmonary edema and borderline cardiomegaly. There were emphysematous changes. There is bibasilar atelectasis versus small infiltrates, and tiny nodular densities that are likely post infectious. He also had gastroesophageal reflux noted in the esophagus. ASSESSMENT/PLAN: A 58-year-old male, postoperative day 1, robotic bilateral inguinal hernia repair with postoperative pulmonary edema or aspiration pneumonia. He is getting nebulizers and working on his incentive spirometer. He is on aztreonam and got a dose of vancomycin yesterday. He was given a dose of Lasix yesterday. From my standpoint, I just want him to be out of bed, sitting up and working on his incentive spirometer and he can be discharged per the hospitalist service when he is deemed stable. There are no new acute surgical issues at this time. cc: Martín Merlos MD
--- NOTE | 2018-11-23 14:52 | PULMONOLOGY CONSULTATION ---
DATE: 11/22/2018 REQUESTING PHYSICIAN: Dr. Romeo. REASON FOR CONSULTATION: Postoperative hypoxemia with pulmonary nodules. HISTORY OF PRESENT ILLNESS: Mr. Wheeler is a 58-year-old black male with ongoing tobacco use, COPD, history of posttraumatic stress disorder who underwent an elective bilateral hernia repair laparoscopically yesterday (mesh was utilized). The case was uneventful but postoperatively the patient had copious amounts of secretions in the recovery room and a nasal trumpet insertion was complicated by a nosebleed. The patient required oxygen for ongoing hypoxemia. CT scan of the thorax was performed which revealed bibasilar infiltrates. The patient is awake, alert, and conversant. The patient did leave the hospital earlier today to go out and smoke with his IV in place. He refused to sign out AMA. He did return and was convinced to remain in the hospital. PAST MEDICAL HISTORY: 1. Chronic obstructive pulmonary disease with ongoing tobacco use. 2. History of posttraumatic stress disorder. The patient reports this occurred [place]. 3. Diabetes mellitus. 4. Hypertension. 5. Recent inguinal hernia repair as per above. SOCIAL HISTORY: The patient continued to smoke conventional cigarettes and marijuana cigarettes. Denies alcohol use. FAMILY HISTORY: Noncontributory to current presentation. REVIEW OF SYSTEMS: Notable for some post surgical pain in the groin areas. He does have a slightly wet cough. PHYSICAL EXAMINATION: General: Reveals a well-developed, well-nourished black male, resting comfortably and in no distress. Vital Signs: Blood pressure 168/88, heart rate 104, respiratory rate 18, oxygen saturation 100% on nasal cannula. HEENT: Pupils are equal and reactive. Oropharynx is clear. Neck: Supple. Chest: Reveals crackles in both lung bases. No significant wheezing. Cardiac: S1, S2. Abdomen: Soft without hepatosplenomegaly. Extremities: Without edema. LABORATORIES: CT scan of the thorax is reviewed. Emphysema is identified. He has mild cardiomegaly. He has bibasilar infiltrates. He has non specific nodules in the right upper lobe. The esophagus is filled with debris. IMPRESSION: 58-year-old with: 1. Acute aspiration pneumonia. 2. Acute hypoxemic respiratory failure. 3. Ongoing tobacco and marijuana use. 4. Chronic obstructive pulmonary disease. 5. Nonspecific nodules on CT scan. DISCUSSION: This is a 58-year-old gentleman with problems outlined above. The patient reports he ate around 10 p.m. in the evening because he knew that he would not eat the following day. Aspiration is suspected given the fluid/debris in the esophagus along with bibasilar infiltrates. The patient has nonspecific nodules in the right upper lobe. RECOMMENDATIONS: 1. I agree with current antibiotic regimen. The patient could be transitioned to oral antibiotics such as clindamycin or Levaquin and Flagyl at the time of discharge. 2. Strongly encourage patient to discontinue all smoking products both conventional and marijuana cigarettes. 3. Wean oxygen as tolerated. 4. Recommend his primary care provider perform a followup CT scan in 3 months to re-evaluate the nonspecific nodules in the right upper lobe. cc: Urban Aguilera MD
[2018-11-23] MEDS ORDERED: XANAX PO ONE (15:19)
[2018-11-23] MEDS ORDERED: PERCOCET-5 PO PRN (20:41)
[2018-11-23] MEDS: XANAX PO PRN (21:05)
[2018-11-24] MEDS: AZACTAM 1 GM in NS 50 ML IV SCH (03:16)
[2018-11-24] MEDS: XANAX PO PRN (03:16)
[2018-11-24] MEDS: DUONEB (A & A) INH SCH ×2 (03:38→07:29)
[2018-11-24 05:49] LABS: HEMOGLOBIN 12.5 g/dL (14.0-18.0); MCH 30.3 PG (27-31); MCHC 31.3 g/dL (33-37); MCV 96.9 FL (81-99); MPV 9.5 FL (7.4-10.4); RBC 4.13 XMIL (4.7-6.1); WBC 10.05 X1000 (4.8-10.8)
[2018-11-24 06:23] LABS: AGAP 10; ALB/GLOB RATIO 1.2; ALBUMIN 3.7 g/dL (3.5-5.0); ALKALINE PHOSPHATASE 79 U/L (32-122); BUN 17 mg/dL (8-22); CHLORIDE 109 mmol/L (98-107); COSMO 288; CREATININE 1.2 mg/dL (0.7-1.2); ESTIMATED GFR > 60; GLUCOSE 117 mg/dL (70-104); GOT 13 U/L (10-34); GPT 13 U/L (10-44); POTASSIUM 4.3 mmol/L (3.5-5.1); SODIUM 143 mmol/L (136-145); TCO2 24 mmol/L (25-35); TOTAL BILIRUBIN 0.37 mg/dL (0.20-1.00); TOTAL PROTEIN 6.8 g/dL (6.3-8.3)
[2018-11-24] MEDS: PROTONIX IV SCH (06:28)
[2018-11-24] MEDS: SODIUM CHLORIDE 0.9% INJ SCH (06:28)
[2018-11-24] MEDS: HUMALOG SUBQ SCH (06:29)
[2018-11-24] MEDS: SPIRIVA INH SCH (07:29)
[2018-11-24 07:46] VITALS: BP 177/91
[2018-11-24] MEDS: KEPPRA PO SCH (09:05)
[2018-11-24] MEDS: ASPIRIN EC PO SCH (09:05)
[2018-11-24] MEDS: EFFEXOR PO SCH (09:05)
[2018-11-24] MEDS: VITAMIN D PO SCH (09:05)
[2018-11-24] MEDS: COZAAR PO SCH (09:05)
[2018-11-24] MEDS: COREG PO SCH (09:05)
[2018-11-24] MEDS: NICODERM PATCH TD SCH (09:06)
--- NOTE | 2018-11-24 09:08 | GENERAL SURGERY PROGRESS NOTE ---
DATE: 11/24/2018 SUBJECTIVE: The patient continues to have some shortness of breath but not severe. No abdominal pain. OBJECTIVE: He is afebrile. Vital signs are stable. O2 saturation 93 to 96 percent on 4 L nasal cannula. General: He is awake and alert. No acute distress. CV: Regular rate and rhythm. Respiratory: Bilateral equal breath sounds. No wheezes or rales. GI: Soft and nontender. Incision is clean, dry, and intact. Laboratory: CBC and complete metabolic profile reviewed and unremarkable. ASSESSMENT AND PLAN: A 58-year-old male status post robotic bilateral inguinal hernia repair with postoperative aspiration pneumonia and hypoxemic respiratory failure in the setting of chronic obstructive pulmonary disease and pulmonary nodules on CT scan. We will try to wean his oxygen as tolerated. If this can be accomplished, he can be discharged home today. He will go home on oral antibiotics, Levaquin and Flagyl. These have been written and he needs to follow up with his primary care physician in [address] scan of the chest to evaluate these pulmonary nodules again. cc: Martín Merlos MD
--- NOTE | 2018-11-24 16:41 | PULMONOLOGY PROGRESS NOTE ---
DATE: 11/24/2018 SUBJECTIVE: The patient is awake, alert, and conversant. He has a slightly wet cough. He reports he is anxious to go home. OBJECTIVE: Vital Signs: Vital signs: The patient has been afebrile for the last 24 hours. BP 177/91, heart rate 96, respiratory rate 18, oxygen saturation 95% on 4 L per nasal cannula. HEENT: Pupils are equal and reactive. Oropharynx appears clear. Neck: Supple. Chest: Reveals faint crackles in the lung bases. Cardiac: S1, S2. Abdomen: Soft. Extremities: Without edema. IMPRESSION: A 58-year-old with: 1. Aspiration pneumonia. 2. Acute hypoxemic respiratory failure. 3. Chronic obstructive pulmonary disease 4. Nonspecific nodules on CT scan. DISCUSSION: This is a 58-year-old with problems outlined above. The patient reports he will smoke 1 more cigarette and then will stop smoking permanently. He has received prescriptions for antibiotics. He will be discharged this morning. RECOMMENDATIONS: 1. Agree with discharge on antibiotics and oxygen. 2. Strongly encouraged discontinuing all of tobacco and marijuana cigarettes. 3. Recommend CT scan in 3 month to re-evaluate his nonspecific nodules. This was discussed with the patient and his daughter at the bedside before discharge. cc: Urban Aguilera MD
--- NOTE | 2018-11-24 21:20 | DISCHARGE SUMMARY ---
ADMISSION DATE: 11/22/2018 DISCHARGE DATE: 11/24/2018 FINAL DISCHARGE DIAGNOSES: 1. Postoperative hypoxemia. 2. Aspiration pneumonitis. 3. Pulmonary nodules. 4. Diabetes mellitus type 2. 5. Status post laparoscopic repair of bilateral incarcerated inguinal hernias. 6. Hypertension. 7. Anxiety disorder. 8. Posttraumatic stress disorder. 9. Seizure disorder. 10. Emphysema. 11. COPD CONSULTATIONS: Pulmonary consultation with Dr. Aguilera. IMAGING: CT of the chest performed on 11/22/2018 that revealed mild pulmonary edema. Emphysema. Atelectasis versus small infiltrates. Several small nodular densities. HOSPITAL COURSE: Mr. Wheeler is a 58-year-old male with a history of multiple medical problems who was seen postoperatively after undergoing a bilateral inguinal hernia repair. Following the procedure the patient was noted to be hypoxic and was admitted to the hospitalist service for further treatment and evaluation. The initial chest x-ray revealed pulmonary edema. The patient was placed on supplemental oxygen. An ABG was done that indicated a PO2 of 52. There was concern that the patient had aspirated because he ate when he was not supposed to prior to surgery. The patient was started on broad-spectrum antibiotics, bronchodilator therapy and supplemental oxygen, also Pulmonary was consulted. A CT of the chest was done that revealed several adjacent tiny nodular densities in the right upper lobe of the lung as well as emphysema. The patient was treated for suspected aspiration pneumonitis and slowly improved. The patient was assessed to determine whether he would require home oxygen and he qualified for home oxygen so [employer] was called and the patient was provided with home oxygen. The patient was also advised to quit smoking. The patient continued to improve clinically and was ultimately cleared for discharge home on 11/24/2018. DISCHARGE MEDICATIONS: 1. Percocet 5/325 one tab oral every 6 hours p.r.n. pain. 2. Senokot 1 tab oral twice a day. 3. Lactobacillus 1 tab oral twice a day. 4. MiraLAX 17 g p.o. twice a day. 5. Clindamycin 600 mg p.o. every 8 hours for 7 days. 6. Losartan 100 mg p.o. daily. 7. Metformin 500 mg oral twice a day. 8. Effexor 2 tabs oral daily. 9. Spiriva 18 mcg inhaled daily. 10. Aspirin 81 mg p.o. daily. 11. Keppra 500 mg p.o. twice a day. 12. Vitamin D3 5000 units oral daily. 13. Albuterol inhaler 2 puffs inhaled p.r.n. DISCHARGE DIET: Low-sodium diet, 1800 ADA diet. ACTIVITY: As tolerated. FOLLOWUP INSTRUCTIONS: The patient will need to follow up with Dr. Ya as scheduled by his clinic. The patient will need to follow up with Dr. Timmons in 1 to 2 weeks. The patient will also need a follow-up CT of the chest in 3 months to check for resolution of the nodular density seen on the CT done during this hospitalization. cc: Shania Romeo MD [facility]
--- NOTE | 2018-11-25 07:38 | EKG Report ---
Test Performed on : 11/22/2018 7:15:44 PM Test Reason : tachycardia Blood Pressure : / mmHG Vent. Rate : 079 BPM Atrial Rate : 079 BPM P-R Int : 130 ms QRS Dur : 082 ms QT Int : 408 ms P-R-T Axes : 062 -08 -05 degrees QTc Int : 467 ms Normal sinus rhythm. with sinus arrhythmia. Possible Left atrial enlargement ST & T wave abnormality, consider lateral ischemia Prolonged QT Abnormal ECG When compared with ECG of 10-AUG-2018 12:44, No significant change was found Confirmed by Farooq CASON, Ramone Luna ([id number]) on 11/25/2018 7:58:35 AM
== END 2018-11-24 12:01 | disposition home or self-care (01) | DRG 981 ==
LOC: OR 10:26 → 3S 15:43
PROVIDERS: ATTEND Internal Medicine
CPT/HCPCS: 71010; 71045; 71250; 78582; 80048; 80053; 81001; 82550; 82553; 82805; 82948; 83880; 84484; 85025; 85027; 85651; 86140; 87040; 93005; 93010; 94640; 94761; 94799; A9270; A9539; A9540; C1781; C9113; J0330; J1170; J1650; J1815; J1940; J2250; J2310; J2405; J3010; J3370; J7040; J7120; S0073; S0164; S2900; XXXXX